=== PATIENT | male | born 1940 | race Caucasian/White ===

== ENCOUNTER 2019-03-15 10:28 | Outpatient (CLI) | payer MEDICARE, SELFPAY ==
[2019-03-15 13:30] LABS: Alanine Aminotransferase 18 U/L (4-50); Albumin Level 4.4 g/dL (3.5-5.1); Alkaline Phosphatase 82 U/L (38-126); Aspartate Amino Transferase 21 U/L (17-59); Bilirubin,Total 0.5 mg/dL (0.2-1.3); Blood Urea Nitrogen 34 mg/dL (9-20); Calcium 9.7 mg/dL (8.4-10.2); Carbon Dioxide 27 mmol/L (22-30); Chloride 102 mmol/L (98-107); Cholesterol 171 mg/dL (0-200); Estimated Glomerular Filt Rate 49; Glucose 139 mg/dL (75-110); HDL Direct 30 mg/dL; Potassium 4.9 mmol/L (3.4-5.0); Sodium 140 mmol/L (137-145); Triglycerides 220 mg/dL (<150)
[2019-03-15 13:41] LABS: LDL Cholesterol Direct 120 mg/dL
== END 2019-03-15 10:29 | disposition home or self-care (01) ==
PROVIDERS: PCP Family Medicine; Visit Provider Internal Medicine Endocrinology, Diabetes & Metabolism
DX: E11.9 Type 2 diabetes mellitus without complications (principal)
CPT/HCPCS: 36415; 80053; 80061; 84443

== ENCOUNTER 2019-06-12 12:15 | Outpatient (CLI) | payer MEDICARE, SELFPAY ==
[2019-06-12 13:27] LABS: Blood Urea Nitrogen 26 mg/dL (9-20); Calcium 9.3 mg/dL (8.4-10.2); Carbon Dioxide 30 mmol/L (22-30); Chloride 101 mmol/L (98-107); Estimated Glomerular Filt Rate 54; Glucose 145 mg/dL (75-110); Potassium 4.1 mmol/L (3.4-5.0); Sodium 139 mmol/L (137-145)
== END 2019-06-12 12:16 | disposition home or self-care (01) ==
PROVIDERS: PCP Family Medicine; Visit Provider Internal Medicine Endocrinology, Diabetes & Metabolism
DX: E11.21 Type 2 diabetes mellitus with diabetic nephropathy (principal); N18.3 Chronic kidney disease, stage 3 (moderate)
CPT/HCPCS: 36415; 80048

== ENCOUNTER 2019-09-26 11:47 | Outpatient (CLI) | payer MEDICARE, SELFPAY ==
[2019-09-26 12:18] LABS: Anion Gap 10 mmol/L (8-16); Blood Urea Nitrogen 36 mg/dL (9-20); Calcium 9.4 mg/dL (8.4-10.2); Carbon Dioxide 28 mmol/L (22-30); Chloride 98 mmol/L (98-107); Cholesterol 135 mg/dL (0-200); Estimated Glomerular Filt Rate 45; Glucose 148 mg/dL (75-110); HDL Direct 33 mg/dL; Potassium 4.5 mmol/L (3.4-5.0); Sodium 136 mmol/L (137-145); Triglycerides 159 mg/dL (<150)
[2019-09-26 12:29] LABS: LDL Cholesterol Direct 77 mg/dL
[2019-09-26 13:07] LABS: Creatinine Urine 64.8 mg/dL
[2019-09-26 13:29] LABS: MALB Creatinine Ratio < 9.3 mg/g (0-30); Microalbumin Urine Random < 6.0 mg/L (0-16.7)
== END 2019-09-26 11:48 | disposition home or self-care (01) ==
LOC: ANHLAB 11:49
PROVIDERS: PCP Family Medicine; Visit Provider Internal Medicine Endocrinology, Diabetes & Metabolism
DX: E11.21 Type 2 diabetes mellitus with diabetic nephropathy (principal); E78.5 Hyperlipidemia, unspecified
CPT/HCPCS: 36415; 80048; 80061; 82043

== ENCOUNTER 2019-12-03 09:54 | Outpatient (CLI) | payer MEDICARE, SELFPAY ==
[2019-12-03 10:37] LABS: Anion Gap 9 mmol/L (8-16); Blood Urea Nitrogen 33 mg/dL (9-20); Calcium 9.6 mg/dL (8.4-10.2); Carbon Dioxide 29 mmol/L (22-30); Chloride 103 mmol/L (98-107); Estimated Glomerular Filt Rate 54; Glucose 146 mg/dL (75-110); Potassium 4.6 mmol/L (3.4-5.0); Sodium 141 mmol/L (137-145)
== END 2019-12-03 09:55 | disposition home or self-care (01) ==
LOC: ANHLAB 09:55
PROVIDERS: PCP Family Medicine; Visit Provider Internal Medicine Endocrinology, Diabetes & Metabolism
DX: E11.21 Type 2 diabetes mellitus with diabetic nephropathy (principal); N18.30 Chronic kidney disease, stage 3 unspecified
CPT/HCPCS: 36415; 80048

== ENCOUNTER 2022-03-07 13:06 | Outpatient (CLI) | payer MEDICARE, SELFPAY ==
[2022-03-07 13:58] LABS: Influenza A QL RT-PCR Negative (Negative); Influenza B QL RT-PCR Negative (Negative); RSV RNA, RT-PCR Negative (Negative); SARS-CoV-2 RNA PCR Positive
== END 2022-03-07 13:07 | disposition home or self-care (01) ==
PROVIDERS: PCP Family Medicine; Visit Provider Physician Assistant
DX: U07.1 COVID-19 (principal)
CPT/HCPCS: 87637

== ENCOUNTER 2022-07-13 08:41 | Outpatient (CLI) | payer MEDICARE, SELFPAY ==
--- NOTE | 2022-08-02 08:04 | WPDSLEEPSTUD ---
Sleep Study Date of Study: 07/13/22 Ordering Provider: Shaunna Blackman MD Interpreting Physician: Shaunna Blackman MD Sleep Study Type: Split Polysomnogram Height: 1.7 m Weight: 83.461 kg Body Mass Index: 28.8 Neck Circumference (inches): 15.5 [place]: 2 Reason for Sleep Study Difficulty tolerating BiPAP 20/16 cm H2O. Sleep History Andrei Butt is an 82-year-old male with history of CKD, diabetes, hypertension, hyperlipidemia, and obstructive sleep apnea who presented for a repeat split-night polysomnogram due to great difficulty tolerating BiPAP pressures resulting in poor compliance. He last had a difficult BiPAP titration August 2017 where BiPAP 13/9 cm H2O was felt to be the best pressure. Recent BiPAP compliance data through early May 2022 showed he had used BiPAP 48% of nights with an overall AHI of 26.9, high air leak. He notes a history of deviated septum. He constantly awakens from sleep short of breath. He never awakens at night with heartburn, belching or cough. He constantly snores and frequently snores loud enough for others to complain. He occasionally has trouble sleeping when he has a cold. He never wakes up gasping for breath during the night. He occasionally has breathing problems at night, dry mouth. He occasionally sweats excessively at night. He never falls asleep during the day. He does not fall asleep involuntarily and never falls asleep while driving. He rarely notices his heart pounding or beating irregularly during the night. He never experiences loss of muscle tone with strong emotion. He never feels paralyzed on waking or falling asleep. He rarely experiences vivid dreams upon waking or falling asleep. He does not feel afraid of going to sleep. He rarely has nightmares. He never recalls his dreams. He occasionally has thoughts racing through his mind. He does not feel sad or depressed. He rarely feels anxiety or worry about things. He never notices parts of his body jerk. He occasionally kicks during the night. He never feels crawling or aching feelings in his legs. He never feels leg pain at night. He rarely grinds his teeth during sleep and never has morning jaw pain. He never feels bothered by pain during the day and is never awakened by pain during the night. He does not wake up feeling stiff in the morning and rarely wakes up feeling sore and achy in the morning with pain in his neck, spine, or joints. Normal bedtime is around 9pm on the weekdays and 10pm on the weekends, usually falling asleep in 20 minutes. He typically gets about 8 hours of sleep per night. His wake-up time is around 8am on the weekdays and 9am on the weekends. He typically wakes up around 1 or 2 times per night and can be awake for 15 to 20 minutes each time. Habits: Never tobacco smoker. Drinks about 1 to 2 caffeinated beverages per week. No alcohol or recreational substances. [facility] Past Medical History Medical History Broken arm right arm age 17 CKD (chronic kidney disease) stage 3, GFR 30-59 ml/min Diabetes History of kidney stones Hyperlipidemia Hypertension Hypertension TRACY on CPAP TRACY treated with BiPAP Severe obstructive sleep apnea Type 2 diabetes with nephropathy Surgical History Surgical History History of repair of left rotator cuff History of surgery on arm right arm broken age 17 No pertinent past surgical history Family History Family History Mother Diabetes mellitus Family history of cardiovascular disease Other Angina at rest Heart disease Social History Social History Social History: small amount of cigarette smoking, 1/4 ppd for 9 months while he was in college; Smoking status: Former smoker Tobacco type: pipe Second hand tobacco smoke exposure: No Alcohol intake:
[2022-08-02 08:22] VITALS: BMI 28.8
== END 2022-07-14 08:06 | disposition home or self-care (01) ==
LOC: ANHCSM 08:43
PROVIDERS: PCP Family Medicine; Visit Provider Internal Medicine Critical Care Medicine
DX: G47.33 Obstructive sleep apnea (adult) (pediatric) (principal); G47.39 Other sleep apnea; G47.61 Periodic limb movement disorder
CPT/HCPCS: 95811

== ENCOUNTER 2024-01-30 14:17 | Outpatient (CLI) | payer OTHER, SELFPAY | END 2024-01-30 14:18 | disposition home or self-care (01) | LOC: ANHAUDIO 14:18 | PROVIDERS: PCP Family Medicine; Visit Provider Student in an Organized Health Care Education/Training Program | DX: H90.3 Sensorineural hearing loss, bilateral (principal) | CPT/HCPCS: 92557; 92567 ==

== ENCOUNTER 2024-12-16 17:22 | Emergency (ER) | payer OTHER, SELFPAY ==
[2024-12-16 17:45] VITALS: BP 154/86; PULSE 81; RESP 16; TEMP 36.6; O2SAT 97
--- NOTE | 2024-12-16 18:21 | ED_ITS ---
HPI - Animal Bite General Chief Complaint: Animal Bite Stated Complaint: Bitten by bat Time Seen by Provider: 12/16/24 18:08 Source: patient, family (Daughter and ) and RN notes reviewed Mode of arrival: ambulatory Limitations: no limitations History of Present Illness HPI narrative: 84-year-old male patient with history of diabetes, presents today after being bit by a bat on his right 5th finger approximately 2 hours prior to exam. He collected a bat (unsure if this is the bat that bit him) from under his patio umbrella, and brought it with him, wanting to get it checked for rabies today. Denies any current pain. Related Data Allergies Allergy/AdvReac Type Severity Reaction Status Date / Time No Known Allergies Allergy Unknown Verified 12/16/24 17:41 [facility] Past Medical History Medical History Gouty arthropathy Type 2 diabetes mellitus without complication Hyperlipidemia LDL goal <100 History of kidney stones Broken arm right arm age 17 Hypertension TRACY treated with BiPAP CKD (chronic kidney disease) stage 3, GFR 30-59 ml/min Surgical History Surgical History H/O tooth extraction History of cataract removal with insertion of prosthetic lens History of repair of left rotator cuff History of surgery on arm right arm broken age 17 Family History Family History Mother Diabetes mellitus Family history of cardiovascular disease CKD (chronic kidney disease) Father CKD (chronic kidney disease) Sibling Heart disease Cerebrovascular accident Breast cancer Sibling No problems noted. Other Angina at rest Social History Social History Social History: small amount of cigarette smoking, 1/4 ppd for 9 months while he was in college; Smoking status: Former smoker (quit many years ago) Tobacco type: pipe Second hand tobacco smoke exposure: No Additional smoking assessment comments: in college for about 2-3 months Alcohol intake: current Alcohol use details: consumes 1 glass of wine socially Substance use: never Substance use type: does not use Do You Feel Safe in your Home?: Yes Lack of Transportation: No Lack of Food: Never True Current Housing: I Have Housing Concerned About Future Housing: Decline to Answer Difficulty Paying Gas/Electric Bills: Decline to Answer Difficulty Paying for Meds: Decline to Answer Currently Unemployed: Decline to Answer Education: Decline to Answer Difficulty w/ Childcare or Family Care: Decline to Answer Living arrangements: with family Occupation/Education: retired Additional occupation/education comments: [employer] Gender identity (if verbalized by the patient): Male Spiritual care concerns: Yes Agree to blood products: Yes Comments At time of signature, I have reviewed and agree with nursing past medical, surgical, social and family history unless otherwise noted. Please see nursing chart for further information. There is no relevant family history pertinent to the presenting complaint Exam Narrative: GENERAL: Well-appearing, well-nourished, and in no acute distress. HEAD: Normocephalic, atraumatic. EYES: EOMI. No redness or drainage. Conjunctivae normal. ENT: Mucous membranes pink and moist. NECK: Normal AROM. CHEST: No respiratory distress. EXTREMITIES: Right 5th finger: 2 tiny puncture wounds to the distal phalanx surrounded by dried blood. No edema, ecchymosis, erythema. Distal sensation intact. Capillary refill normal. Full range of motion intact. SKIN: Warm, dry, no rash. Capillary refill normal. Normal skin turgor. NEURO: No focal deficits. Alert and oriented x3. Gait steady. PSYCH: Normal affect. No signs of depression or anxiety. Course Course Level of Care: Express Care Visit Vital Signs Vital signs: Vital Signs Temperature 98 F 12/16/24 17:45 Pulse Rate 81 12/16/24 17:45 Respiratory Rate 16 12/16/24 17:45 Blood Pressure 154/86 H 12/16/24 17:45 Pulse Oximetry 97 12/16/24 17:45 Temperature 98 F 12/16/24 17:45 Pulse Rate 81 12/16/24 17:45 Respiratory Rate 16 12/16/24 17:45 Blood Pressure 154/86 H 12/16/24 17:45 Pulse Oximetry 97 12/16/24 17:45 Reviewed MDM - Animal Bite MDM Narrative Medical decision making narrative: 84-year-old male patient with history of diabetes, presents today after being bit by a bat on his right 5th finger approximately 2 hours prior to exam. He collected a bat (unsure if this is the bat that bit him) from under his patio umbrella, and brought it with him, wanting to get it checked for rabies today. Denies any current pain. Upon exam, 2 tiny puncture wounds to the distal phalanx surrounded by dried blood. Neurovascularly intact. Patient will be started on Augmentin to prevent infection. Discussed rabies vaccine and immunoglobulin. He will be discharged from [facility] and will proceed to the ER start vaccine course. Instructed to take back to the [facility] for testing. Patient agrees with plan. Vital signs stable. Anticipatory guidance given. Differential Diagnosis Differential diagnosis: Likely bite by animal and other (possible rabies contact) Critical Care Time Critical Care Time Critical Care Time: No Discharge Plan Discharge Clinical Impression: Bat bite of finger Patient Disposition: Home Condition: Stable Additional Instructions: Please proceed to the ER to start your rabies vaccine course. Please take the Augmentin as prescribed to help prevent infection. You can take your bat to the [facility] for testing. Patient Language: Malawian Prescriptions: New amoxicillin-pot clavulanate 875-125 mg tablet 1 tablet PO Q12H 5 Days Qty: 10 0RF No Action Farxiga 10 mg tablet See Rx Instructions .ROUTE .COMPLEX Qty: 90 1RF Dose Instruction: TAKE 1 TABLET BY MOUTH EVERY DAY Rx Instructions: TAKE 1 TABLET BY MOUTH EVERY DAY Trulicity 3 mg/0.5 mL pen injector 3 mg subcut WEEKLY Qty: 6 1RF Follow-up/Referrals: Maryam Sims MD [Primary Care Provider, [facility]] Time of Disposition: 18:24
== END 2024-12-16 18:28 | disposition home or self-care (01) ==
PROVIDERS: Emergency Provider Nurse Practitioner; PCP Family Medicine
DX: S61.236A Puncture wound without foreign body of right little finger without damage to nail, initial encounter (principal); W55.81XA Bitten by other mammals, initial encounter; Z87.891 Personal history of nicotine dependence; I12.9 Hypertensive chronic kidney disease with stage 1 through stage 4 chronic kidney disease, or unspecified chronic kidney disease; E11.22 Type 2 diabetes mellitus with diabetic chronic kidney disease; N18.30 Chronic kidney disease, stage 3 unspecified; Z79.85 Long-term (current) use of injectable non-insulin antidiabetic drugs; E78.5 Hyperlipidemia, unspecified; G47.33 Obstructive sleep apnea (adult) (pediatric)
CPT/HCPCS: 99213; G0463

== ENCOUNTER 2024-12-16 19:08 | Emergency (ER) | payer OTHER, SELFPAY ==
[2024-12-16 19:15] VITALS: BP 154/92; PULSE 75; RESP 18; TEMP 36.6; O2SAT 99
--- NOTE | 2024-12-16 22:23 | ED.ANIMALBIT ---
HPI - Animal Bite General Chief Complaint: Animal Bite Stated Complaint: bat bite Time Seen by Provider: 12/16/24 21:45 Source: patient Mode of arrival: ambulatory Limitations: no limitations History of Present Illness HPI narrative: This is a 84 year old male that presents to the ER for possible rabies exposure. Reports he was bitten by something in his garage. He found a bat and captured it and brought it to urgent care for further management. Reports small puncture wound to the tip of the right 5th finger. Related Data Allergies Allergy/AdvReac Type Severity Reaction Status Date / Time No Known Allergies Allergy Unknown Verified 12/16/24 19:17 Review of Systems Review of Systems: All systems reviewed & are unremarkable except as noted in HPI and below PMFSH Past Medical History Medical History Gouty arthropathy Type 2 diabetes mellitus without complication Hyperlipidemia LDL goal <100 History of kidney stones Broken arm right arm age 17 Hypertension TRACY treated with BiPAP CKD (chronic kidney disease) stage 3, GFR 30-59 ml/min Surgical History Surgical History H/O tooth extraction History of cataract removal with insertion of prosthetic lens History of repair of left rotator cuff History of surgery on arm right arm broken age 17 Family History Family History Mother Diabetes mellitus Family history of cardiovascular disease CKD (chronic kidney disease) Father CKD (chronic kidney disease) Sibling Heart disease Cerebrovascular accident Breast cancer Sibling No problems noted. Other Angina at rest Social History Social History Social History: small amount of cigarette smoking, 1/4 ppd for 9 months while he was in college; Smoking status: Former smoker (quit many years ago) Tobacco type: pipe Second hand tobacco smoke exposure: No Additional smoking assessment comments: in college for about 2-3 months Alcohol intake: current Alcohol use details: consumes 1 glass of wine socially Substance use: never Substance use type: does not use Do You Feel Safe in your Home?: Yes Lack of Transportation: No Lack of Food: Never True Current Housing: I Have Housing Concerned About Future Housing: Decline to Answer Difficulty Paying Gas/Electric Bills: Decline to Answer Difficulty Paying for Meds: Decline to Answer Currently Unemployed: Decline to Answer Education: Decline to Answer Difficulty w/ Childcare or Family Care: Decline to Answer Living arrangements: with family Occupation/Education: retired Additional occupation/education comments: [employer] Gender identity (if verbalized by the patient): Male Spiritual care concerns: Yes Agree to blood products: Yes Exam Narrative: GENERAL: Well-appearing, well-nourished, and in no acute distress. HEAD: Normocephalic, atraumatic. EYES: EOMI. EXTREMITIES: Normal range of motion. No edema. Right 5th finger with small puncture wound to the distal phalanx SKIN: Warm, dry, no rash. NEURO: No focal deficits. Alert and oriented x3. PSYCH: Normal mood and affect Course Consultations Consultation #1: infection control contacted. will be started on rabies vaccine series Date: 12/16/24 Vital Signs Vital signs: Vital Signs Temperature 97.8 F 12/16/24 19:15 Pulse Rate 75 12/16/24 19:15 Respiratory Rate 18 12/16/24 19:15 Blood Pressure 154/92 H 12/16/24 19:15 Pulse Oximetry 99 12/16/24 19:15 Temperature 97.8 F 12/16/24 19:15 Pulse Rate 75 12/16/24 19:15 Respiratory Rate 18 12/16/24 19:15 Blood Pressure 154/92 H 12/16/24 19:15 Pulse Oximetry 99 12/16/24 19:15 MDM - Animal Bite MDM Narrative Medical decision making narrative: Patient presents to the ER after possible bat bite. Will be started on rabies vaccination series and follow up with infection control/health department Differential Diagnosis Differential diagnosis: Likely bite by animal and rabies contact Critical Care Time Critical Care Time Critical Care Time: No Discharge Plan Discharge Clinical Impression: Bat bite of finger Patient Disposition: Home Condition: Stable Instructions: Rabies Vaccine (By injection), Rabies Immune Globulin (By injection) Additional Instructions: Return to the emergency department if you experience fever, chest pain, shortness of breath, abdominal pain with nausea and vomiting, weakness, numbness, or any other symptoms that are concerning to you. You were given first dose of rabies vaccination series as well as the immune globulin tonight. Follow up with infection control for further vaccination series Patient Language: Mongolian Prescriptions: No Action amoxicillin-pot clavulanate 875-125 mg tablet 1 tablet PO Q12H 5 Days Qty: 10 0RF Farxiga 10 mg tablet See Rx Instructions .ROUTE .COMPLEX Qty: 90 1RF Dose Instruction: TAKE 1 TABLET BY MOUTH EVERY DAY Rx Instructions: TAKE 1 TABLET BY MOUTH EVERY DAY Trulicity 3 mg/0.5 mL pen injector 3 mg subcut WEEKLY Qty: 6 1RF Follow-up/Referrals: Maryam Sims MD [Primary Care Provider, Family Practice]
[2024-12-16 22:30] VITALS: BP 144/81; PULSE 79; RESP 18; O2SAT 97
[2024-12-16] MEDS: RABIES IMMUNE GLOBULIN/PF 1,500 UNITS/5 ML VIAL 1500 UNITS IM (22:39)
[2024-12-16] MEDS: RABIES VACCINE (RABAVERT) 2.5 UNITS VIAL IM (22:41)
== END 2024-12-16 23:08 | disposition home or self-care (01) ==
PROVIDERS: Emergency Provider Physician Assistant; PCP Family Medicine
DX: S61.256A Open bite of right little finger without damage to nail, initial encounter (principal); W55.81XA Bitten by other mammals, initial encounter; Z29.14 Encounter for prophylactic rabies immune globulin; E11.9 Type 2 diabetes mellitus without complications; E78.5 Hyperlipidemia, unspecified; Z87.442 Personal history of urinary calculi; G47.30 Sleep apnea, unspecified; I12.9 Hypertensive chronic kidney disease with stage 1 through stage 4 chronic kidney disease, or unspecified chronic kidney disease; N18.30 Chronic kidney disease, stage 3 unspecified
CPT/HCPCS: 90375; 90471; 90472; 90675; 96372; 99283